=== PATIENT | female | born 1985 | race Hispanic/Latino ===

== ENCOUNTER 2018-05-26 04:22 | Emergency (ER) | payer BC ==
[2018-05-26] MEDS ORDERED: Sodium Chloride 0.9% 1,000 ML IV STA (04:34)
--- NOTE | 2018-05-26 04:42 | ED PDOC ---
HPI: Abdomen Time Seen by Provider: 05/26/18 04:33 Chief Complaint (Nursing): Abdominal Pain Chief Complaint (Provider): Abdominal Pain History Per: Patient History/Exam Limitations: no limitations Onset/Duration Of Symptoms: Hrs (9 pm), Sudden Onset Additional Complaint(s): 33 y/o female with no significant past medical history presents to the ED complaining of numerous episodes of vomiting and diarrhea. Patient reports symptoms started suddenly at 9 pm and has since been unable to keep down any food drink. Patient states she now feels weak and dehydrated. Patient is afebrile and denies any other symptoms. Past Medical History Reviewed: Historical Data, Nursing Documentation, Vital Signs Vital Signs: Last Vital Signs Temp 98.2 F 05/26/18 04:22 Pulse 113 H 05/26/18 04:22 Resp 16 05/26/18 04:22 BP 120/80 05/26/18 04:22 Pulse Ox 98 05/26/18 04:22 - Family History Family History: States: Unknown Family Hx - Home Medications Home Medications: Ambulatory Orders Medication Instructions Recorded Ondansetron ODT [Zofran ODT] 4 mg PO Q4 #30 odt 05/26/18 - Allergies Allergies/Adverse Reactions: Allergies Allergy/AdvReac Type Severity Reaction Status Date / Time No Known Allergies Allergy Verified 05/26/18 04:25 Review of Systems ROS Statement: Except As Marked, All Systems Reviewed And Found Negative Constitutional: Positive for: Weakness. Negative for: Fever Gastrointestinal: Positive for: Vomiting, Abdominal Pain, Diarrhea Physical Exam - Reviewed Nursing Documentation Reviewed: Yes Vital Signs Reviewed: Yes - Physical Exam Appears: Positive for: No Acute Distress (Tired) Head Exam: Positive for: ATRAUMATIC, NORMAL INSPECTION, NORMOCEPHALIC Skin: Positive for: Normal Color, Warm, DRY Eye Exam: Positive for: EOMI, Normal appearance, PERRL ENT: Positive for: Other (lips are dry) Neck: Positive for: Normal, Painless ROM Cardiovascular/Chest: Positive for: Regular Rate, Rhythm. Negative for: Murmur Respiratory: Positive for: Normal Breath Sounds. Negative for: Respiratory Distress Gastrointestinal/Abdominal: Positive for: Normal Exam, Soft. Negative for: Tenderness, Mass Back: Positive for: Normal Inspection Extremity: Positive for: Normal ROM. Negative for: Pedal Edema, Deformity Neurological/Psych: Positive for: Awake, Alert, Normal Tone. Negative for: Motor/Sensory Deficits - Laboratory Results Result Diagrams: 05/26/18 05:00 05/26/18 05:00 - ECG O2 Sat by Pulse Oximetry: 98 (RA) Pulse Ox Interpretation: Normal Medical Decision Making Medical Decision Making: Time: 04:34 MDM: Workup for gastroenteritis * Labs * IV Fluids * Zofran * Will get imaging if there any abnormalities * Reassess 06:02 Patient's labs are unremarkable and symptoms are improved. Patient is to be discharged home with Rx for Zofran. Return parameters discussed. Patient will follow up with PMD. Scribe Attestation: Documented by Viktor Jensen, acting as a scribe for July Tolliver MD. Provider Scribe Attestation: All medical record entries made by the Scribe were at my direction and personally dictated by me. I have reviewed the chart and agree that the record accurately reflects my personal performance of the history, physical exam, medical decision making, and the department course for this patient. I have also personally directed, reviewed, and agree with the discharge instructions and disposition. Disposition - Clinical Impression Clinical Impression: Abdominal pain, Gastroenteritis - Disposition Disposition: Routine/Home Disposition Time: 06:02 Condition: IMPROVED Additional Instructions: Take Zofran as needed every 4 hours as needed for nausea/vomiting. Increase hydration while symptoms last. Follow up with primary medical doctor. Return to the emergency department if symptoms worsen or if new symptoms develop. Prescriptions: Ondansetron ODT [Zofran ODT] 4 mg PO Q4 #30 odt Instructions: Viral Gastroenteritis, Adult (DC) Forms: [employer] (Turkish) Print Language: BENINESE
[2018-05-26 05:17] LABS: BASO % 0.1 % (0.0-2.0); EOS % 0.1 % (0.0-4.0); HEMOGLOBIN 14.9 g/dL (12.0-16.0); LYMPH # 0.2 K/uL (1.0-4.3); MEAN CELL VOLUME 86.9 fl (81.0-99.0); MEAN CORPUSCULAR HEMOGLOBIN 29.2 pg (27.0-31.0); MEAN CORPUSCULAR HGB CONC 33.6 g/dL (33.0-37.0); MEAN PLATELET VOLUME 8.4 fl (7.2-11.7); MONO # 0.2 K/uL (0.0-0.8); MONO % 2.9 % (0.0-10.0); NEUT % 94.9 % (50.0-75.0); PLATELET COUNT 184 K/uL (130-400); RED CELL DISTRIBUTION WIDTH 12.9 % (11.5-14.5); WHITE BLOOD COUNT 7.4 K/uL (4.8-10.8)
[2018-05-26 05:25] LABS: ALB/GLOB RATIO 1.5 (1.0-2.1); ALT/SGPT 22 U/L (9-52); AST/SGOT 30 U/L (14-36); BLOOD UREA NITROGEN 21 mg/dl (7-17); CALCIUM 9.8 mg/dL (8.4-10.2); GFR NON-AFRICAN AMERICAN > 60
[2018-05-26 06:07] LABS: BANDS 1 % (0-2); EOSINOPHIL 1 % (0-7); LYMPHOCYTE 3 % (20-50); MONOCYTE 6 % (0-10); NEUTROPHIL 89 % (42-75); TOTAL CELLS COUNTED 100
[2018-05-26 06:08] LABS: PLATELET ESTIMATE NORMAL (NORMAL)
[2018-05-26 06:33] VITALS: BP 103/54; PULSE 87; RESP 18; TEMP 97.6
[2018-05-26 08:30] LABS: SQUAMOUS EPITHIAL 1 /hpf (0-5); URINE BACTERIA RARE (<OCC); URINE BILIRUBIN NEGATIVE (NEGATIVE); URINE BLOOD NEGATIVE (NEGATIVE); URINE CLARITY CLEAR (Clear); URINE COLOR YELLOW (YELLOW); URINE GLUCOSE (UA) NEG (NEGATIVE); URINE LEUKOCYTE ESTERASE NEG Leu/uL (Negative); URINE PROTEIN NEGATIVE (NEGATIVE); URINE UROBILINOGEN 0.2-1.0 mg/dL (0.2-1.0)
[2018-06-03 17:33] VITALS: O2SAT 98
== END 2018-05-26 06:59 | disposition home or self-care (01) ==
LOC: H.ER 04:22 → MERGE 04:22 → H.ER 06:59
DX: R10.9 Unspecified abdominal pain (principal); K52.9 Noninfective gastroenteritis and colitis, unspecified
CPT/HCPCS: 80053; 81003; 81025; 85025; 87804; 96374; 99283; J2405; J7030